=== PATIENT | male | born 1965 | race Caucasian/White ===

== ENCOUNTER 2021-04-22 16:30 | Inpatient (IN) ==
[2021-04-22] MEDS ORDERED: 0.9 % Sodium Chloride 2,000 ML ONE (16:40)
[2021-04-22] MEDS ORDERED: *HR* Heparin 10,000 UNIT/10 ML VIAL ONE (16:40)
[2021-04-22] MEDS ORDERED: Heparin 1,000 UNITS/500 mL 500 ML ONE (16:40)
[2021-04-22] MEDS ORDERED: Nitroglycerin 1,000 MCG/5 ML VIAL IV ONE (16:41)
[2021-04-22] MEDS ORDERED: ISOVUE-370 200 ML INFUS..BTL ONE ×2 (16:41→17:27)
[2021-04-22] MEDS ORDERED: Nitroglycerin 0.4 MG TAB.SUBL SL ONE (16:41)
[2021-04-22] MEDS ORDERED: *HR* Ticagrelor 90 MG TABLET PO ONE (16:42)
[2021-04-22] MEDS ORDERED: *HR* Heparin 5,000 UNIT/ML VIAL IVP ONE (16:42)
[2021-04-22] MEDS: Nitroglycerin 0.4 MG TAB.SUBL SL PRN ×2 (16:42→16:52)
[2021-04-22] MEDS ORDERED: *HR* Heparin 5,000 UNIT/ML VIAL IVP PRN ×2 (16:42)
[2021-04-22] MEDS ORDERED: 0.9 % Sodium Chloride 1,000 ML IVC ONE (16:42)
[2021-04-22] MEDS ORDERED: *HR* Ticagrelor 90 MG TABLET ONE (16:44)
[2021-04-22] MEDS ORDERED: *HR* Heparin 5,000 UNIT/ML VIAL ONE (16:44)
[2021-04-22] MEDS ORDERED: 0.9 % Sodium Chloride 1,000 ML ONE (16:45)
[2021-04-22] MEDS ORDERED: Heparin 25,000UNIT/250ML 1/2NS 25,000 UNIT/250 ML IV.SOLN IVC SCH (16:45)
[2021-04-22 16:53] LABS: Basophils % 0.4 %; Eosinophils # 0.4 K/mcL (0.0-0.6); Eosinophils % 3.7 %; Hematocrit 47.8 % (37.5-50.1); Hemoglobin 15.7 g/dL (12.9-16.9); Immature Granulocytes % 0.2 % (0-4); Lymphocytes # 4.7 K/mcL (0.6-4.6); Lymphocytes % 44.5 %; Mean Corpuscular HGB Conc 32.8 g/dL (31.6-35.5); Mean Corpuscular Hemoglobin 31.8 pg (28.0-33.3); Mean Platelet Volume 8.8 fL (9.4-12.4); Monocytes % 9.5 %; Neutrophils # 4.5 K/mcL (1.6-8.9); Platelet Count 287 K/mcL (140-400); Red Blood Count 4.93 M/mcL (4.19-5.50); Red Cell Distribution Width 12.7 % (11.5-14.5); Segmented Neutrophils % 41.7 %; White Blood Count 10.7 K/mcL (4.3-11.1)
[2021-04-22 17:00] LABS: INR 1.1; Prothrombin Time 11.7 Seconds (9.4-12.1)
[2021-04-22] MEDS ORDERED: *HR* Midazolam HCl 2 MG/2 ML VIAL ONE (17:00)
[2021-04-22] MEDS ORDERED: *HR* FentaNYL (PF) 100 MCG/2 ML VIAL ONE (17:00)
[2021-04-22 17:15] LABS: BUN/Creatinine Ratio 17 (6-26); Blood Urea Nitrogen 16 mg/dL (6-20); Calcium 8.9 mg/dL (8.6-10.3); Carbon Dioxide 30 mEq/L (23-29); Chloride 107 mEq/L (98-107); Creatine Kinase 122 Units/L (30-223); Glucose 105 mg/dL (70-105); Magnesium 2.1 mg/dL (1.6-2.6); Osmolality,Calculated 298 (280-300); Potassium 4.1 mEq/L (3.5-5.1); Sodium 143 mEq/L (136-145); eGFR For African Americans > 60 (> 60); eGFR For Non-African Americans > 60 (> 60)
[2021-04-22 17:20] LABS: Troponin I 0.05 ng/mL (< 0.04)
[2021-04-22] MEDS ORDERED: Naloxone 0.4 MG/ML INJ IVP PRN (18:06)
[2021-04-22] MEDS ORDERED: Perflutren Lipid Microsphere 1.3 ML in 0.9 % Sodium Chloride 8.7 ML IVP PRN (18:06)
[2021-04-22] MEDS: *HR* Ticagrelor 90 MG TABLET PO SCH (20:03)
[2021-04-23] MEDS ORDERED: carvediloL 6.25 MG TABLET PO SCH (08:00)
[2021-04-23] MEDS ORDERED: lisinopriL 10 MG TABLET PO SCH (09:00)
[2021-04-23] MEDS: *HR* Ticagrelor 90 MG TABLET PO SCH ×2 (09:27→20:08)
[2021-04-23] MEDS: Aspirin 81 MG TAB.CHEW PO SCH (09:27)
[2021-04-23 09:35] LABS: Basophils % 0.5 %; Eosinophils # 0.3 K/mcL (0.0-0.6); Hematocrit 45.3 % (37.5-50.1); Hemoglobin 15.1 g/dL (12.9-16.9); Immature Granulocytes % 0.7 % (0-4); Lymphocytes # 2.1 K/mcL (0.6-4.6); Lymphocytes % 25.4 %; Mean Corpuscular HGB Conc 33.3 g/dL (31.6-35.5); Mean Corpuscular Hemoglobin 31.7 pg (28.0-33.3); Monocytes # 0.4 K/mcL (0.0-1.3); Monocytes % 4.7 %; Neutrophils # 5.5 K/mcL (1.6-8.9); Platelet Count 226 K/mcL (140-400); Red Blood Count 4.77 M/mcL (4.19-5.50); Red Cell Distribution Width 12.6 % (11.5-14.5); Segmented Neutrophils % 65.7 %; White Blood Count 8.3 K/mcL (4.3-11.1)
[2021-04-23 10:04] LABS: BUN/Creatinine Ratio 14 (6-26); Blood Urea Nitrogen 11 mg/dL (6-20); Calcium 8.6 mg/dL (8.6-10.3); Carbon Dioxide 26 mEq/L (23-29); Chloride 105 mEq/L (98-107); Chol/HDL Ratio 4.3 (0-4.9); Cholesterol 113 mg/dL (< 200); Glucose 125 mg/dL (70-105); HDL Cholesterol 26 mg/dL (40-59); LDL Cholesterol,Calculated 68 mg/dL (< 100); Osmolality,Calculated 289 (280-300); Potassium 3.6 mEq/L (3.5-5.1); Sodium 139 mEq/L (136-145); Triglycerides 93 mg/dL (< 150); eGFR For African Americans > 60 (> 60); eGFR For Non-African Americans > 60 (> 60)
[2021-04-23 10:53] LABS: Estimated Average Glucose 120 mg/dl; Hemoglobin A1C 5.8 %
[2021-04-23 10:55] LABS: Troponin I 4.05 ng/mL (< 0.04)
[2021-04-24] MEDS: Aspirin 81 MG TAB.CHEW PO SCH (09:29)
[2021-04-24] MEDS: lisinopriL 10 MG TABLET PO SCH (09:30)
[2021-04-24] MEDS: *HR* Ticagrelor 90 MG TABLET PO SCH ×2 (09:31→20:28)
[2021-04-24] MEDS: amLODIPine 5 MG TABLET PO SCH (12:42)
[2021-04-24] MEDS: *HR* Heparin 5,000 UNIT/ML VIAL SQ SCH (18:14)
[2021-04-25 05:32] LABS: BUN/Creatinine Ratio 35 (6-26); Blood Urea Nitrogen 21 mg/dL (6-20); Calcium 8.2 mg/dL (8.6-10.3); Carbon Dioxide 31 mEq/L (23-29); Chloride 90 mEq/L (98-107); Glucose 115 mg/dL (70-105); Osmolality,Calculated 268 (280-300); Potassium 3.8 mEq/L (3.5-5.1); Sodium 127 mEq/L (136-145); eGFR For African Americans > 60 (> 60); eGFR For Non-African Americans > 60 (> 60)
[2021-04-25] MEDS: *HR* Heparin 5,000 UNIT/ML VIAL SQ SCH ×2 (06:06→18:13)
[2021-04-25] MEDS: amLODIPine 5 MG TABLET PO SCH (10:36)
[2021-04-25] MEDS: Aspirin 81 MG TAB.CHEW PO SCH (10:36)
[2021-04-25] MEDS: lisinopriL 10 MG TABLET PO SCH (10:36)
[2021-04-25] MEDS: *HR* Ticagrelor 90 MG TABLET PO SCH ×2 (10:36→20:01)
[2021-04-25 11:47] LABS: Basophils % 0.5 %; Eosinophils # 0.2 K/mcL (0.0-0.6); Eosinophils % 2.2 %; Hematocrit 47.5 % (37.5-50.1); Hemoglobin 15.7 g/dL (12.9-16.9); Immature Granulocytes % 0.2 % (0-4); Lymphocytes # 3.5 K/mcL (0.6-4.6); Mean Corpuscular HGB Conc 33.1 g/dL (31.6-35.5); Mean Corpuscular Hemoglobin 31.9 pg (28.0-33.3); Mean Corpuscular Volume 96.5 fL (83.0-100.0); Mean Platelet Volume 9.1 fL (9.4-12.4); Monocytes # 0.7 K/mcL (0.0-1.3); Monocytes % 7.8 %; Neutrophils # 4.1 K/mcL (1.6-8.9); Platelet Count 274 K/mcL (140-400); Red Blood Count 4.92 M/mcL (4.19-5.50); Red Cell Distribution Width 12.8 % (11.5-14.5); Segmented Neutrophils % 48.3 %; White Blood Count 8.5 K/mcL (4.3-11.1)
[2021-04-25] MEDS ORDERED: amLODIPine 5 MG TABLET PO ONE (18:00)
[2021-04-26] MEDS: *HR* Heparin 5,000 UNIT/ML VIAL SQ SCH ×2 (05:52→17:21)
[2021-04-26 06:30] LABS: Basophils # 0.1 K/mcL (0.0-0.2); Basophils % 0.6 %; Eosinophils # 0.2 K/mcL (0.0-0.6); Eosinophils % 2.8 %; Hematocrit 45.9 % (37.5-50.1); Hemoglobin 15.5 g/dL (12.9-16.9); Immature Granulocytes % 0.1 % (0-4); Lymphocytes # 2.5 K/mcL (0.6-4.6); Lymphocytes % 29.7 %; Mean Corpuscular HGB Conc 33.8 g/dL (31.6-35.5); Mean Corpuscular Hemoglobin 32.7 pg (28.0-33.3); Mean Corpuscular Volume 96.8 fL (83.0-100.0); Mean Platelet Volume 9.3 fL (9.4-12.4); Monocytes # 0.6 K/mcL (0.0-1.3); Monocytes % 6.9 %; Neutrophils # 5.1 K/mcL (1.6-8.9); Platelet Count 261 K/mcL (140-400); Red Blood Count 4.74 M/mcL (4.19-5.50); Red Cell Distribution Width 12.6 % (11.5-14.5); Segmented Neutrophils % 59.9 %; White Blood Count 8.6 K/mcL (4.3-11.1)
[2021-04-26 06:54] LABS: BUN/Creatinine Ratio 18 (6-26); Blood Urea Nitrogen 16 mg/dL (6-20); Calcium 8.6 mg/dL (8.6-10.3); Carbon Dioxide 23 mEq/L (23-29); Chloride 107 mEq/L (98-107); Glucose 124 mg/dL (70-105); Osmolality,Calculated 287 (280-300); Potassium 4.2 mEq/L (3.5-5.1); Sodium 137 mEq/L (136-145); eGFR For African Americans > 60 (> 60); eGFR For Non-African Americans > 60 (> 60)
[2021-04-26] MEDS: Aspirin 81 MG TAB.CHEW PO SCH (09:32)
[2021-04-26] MEDS: *HR* Ticagrelor 90 MG TABLET PO SCH ×2 (09:33→19:41)
[2021-04-26] MEDS: lisinopriL 10 MG TABLET PO SCH (09:33)
[2021-04-26] MEDS: amLODIPine 5 MG TABLET PO SCH (09:33)
[2021-04-27] MEDS: *HR* Heparin 5,000 UNIT/ML VIAL SQ SCH (05:56)
[2021-04-27] MEDS: Aspirin 81 MG TAB.CHEW PO SCH (08:01)
[2021-04-27] MEDS: amLODIPine 5 MG TABLET PO SCH (08:01)
[2021-04-27] MEDS: lisinopriL 10 MG TABLET PO SCH (08:01)
[2021-04-27] MEDS: *HR* Ticagrelor 90 MG TABLET PO SCH (08:01)
[2021-04-27 11:05] VITALS: O2SAT 98
[2021-04-27 11:38] VITALS: BP 136/64; PULSE 64; TEMP 97.6
== END 2021-04-27 12:18 | disposition home or self-care (01) | DRG 247 ==
LOC: EMEROOARM 16:30 → ICNU 16:59 → 2NNU 04-26 16:36
PROVIDERS: ADMIT Internal Medicine Interventional Cardiology; ATTEND Internal Medicine Interventional Cardiology